=== PATIENT | female | born 1955 | race Caucasian/White ===

== ENCOUNTER 2017-10-09 18:14 | Inpatient (IN) | payer OTHER ==
[~2017-10-09] VITALS: Ht 154.9 cm; Wt 81.2 kg
--- NOTE | ~2017-10-09 | EKG ---
[place] [address] ELECTROCARDIOGRAM REPORT Name: VICTORINO ANDERSON Room: [address] ADM IN ..#: [id number] Admission: 10/09/17 Attend Phys: Marvel Hill MD Discharge: Date of : 51 Report #: [id number] THIS REPORT FOR: //name// [facility] ED Test Date: 2017-10-09 Test Time: 18:20:11 Pat Name: VICTORINO KIPAndrews EMELY Department: Room: [address] Gender: F Principal Cloud Architect: Frank SAUCEDO : 1955 Requested By: Rehana Hester Order Number: [id number] Reading MD: Measurements Intervals [place] Rate: 59 P: 24 MO: 169 QRS: -9 QRSD: 138 T: 75 QT: 449 QTc: 445 Interpretive Statements Sinus rhythm Left bundle branch block Baseline wander in lead(s) V1,V2,V4,V5,V6 No previous ECG available for comparison [email or web address] By: 1820 1820 Epiphany Epiphany, /EPI
[2017-10-09 18:19] VITALS: BP 146/83
[2017-10-09] MEDS ORDERED: METFORMIN HCL500 MG PO (18:25)
[2017-10-09] MEDS ORDERED: GLUCOTROL5 MG PO (18:26)
[2017-10-09 18:45] LABS: ABSOLUTE EOSINOPHILS 0.2 thou/uL (0.0-0.7); ABSOLUTE LYMPHOCYTES 2.3 thou/uL (0.8-5.3); ABSOLUTE MONOCYTES 0.3 thou/uL (0.0-1.2); ABSOLUTE NEUTROPHILS 3.2 thou/uL (1.6-8.1); BASOPHILS 0.7 %; EOSINOPHILS 3.5 %; HEMATOCRIT 42.9 % (37.0-47.0); HEMOGLOBIN 14.6 gm/dL (12.0-15.0); LYMPHOCYTES 37.5 %; MCH 30.4 pg (26.0-34.0); MCHC 33.9 g/dL (28.0-37.0); MCV 89.6 fL (80.0-100.0); MONOCYTES 4.5 %; MPV 8.3 fl. (7.2-11.1); NUCLEATED RBCS 0 /100WBC; PLATELET COUNT* 190 thou/uL (150-400); POLYS 53.8 %; RBC 4.79 mil/uL (4.20-5.00); RDW-CV 13.7 % (10.5-14.5)
[2017-10-09 18:58] LABS: ANION GAP 8 mmol/L (7-16); BUN 14 mg/dL (7-18); CALCIUM 9.2 mg/dL (8.5-10.1); CHLORIDE 100 mmol/L (98-107); CO2 26 mmol/L (21-32); CREATININE 0.6 mg/dL (0.6-1.3); GLUCOSE 335 mg/dL (70-99); POTASSIUM 3.8 mmol/L (3.5-5.1); SODIUM 134 mmol/L (136-145)
[2017-10-09 19:05] LABS: ALBUMIN 3.3 g/dL (3.4-5.0); ALKALINE PHOSPHATASE 94 U/L (46-116); SGOT 31 U/L (15-37); SGPT 65 U/L (30-65); TOTAL BILIRUBIN 0.9 mg/dL (<0.1-1.0); TOTAL PROTEIN 6.7 g/dL (6.4-8.2); TROPONIN-I LEVEL <0.06 ng/mL (<0.06)
[2017-10-09 19:24] LABS: BE 0.1 mmol/L (-2 to +3); HCO3 24.4 mmol/L (22.0-26.0); PCO2 38.5 mmHg (35.0-45.0)
[2017-10-09 19:28] LABS: PO2 58.4 mmHg (75.0-100.0)
[2017-10-09 20:48] LABS: URINE BILIRUBIN NEGATIVE (Negative); URINE BLOOD NEGATIVE (Negative); URINE CLARITY CLEAR; URINE COLOR YELLOW; URINE GLUCOSE-RANDOM 3+ (Negative); URINE KETONES NEGATIVE (Negative); URINE LEUKOCYTES-REFLEX TRACE (Negative); URINE NITRITE-REFLEX NEGATIVE (Negative); URINE PROTEIN NEGATIVE (Negative); URINE SPECIFIC GRAVITY <= 1.005 (1.005-1.030); URINE UROBILINOGEN 0.2 E.U./dl (0.2-1.0)
[2017-10-09 21:22] LABS: CASTS None Seen /LPF (None Seen); SQUAMOUS 4-10 Moderate /LPF (0-3)
[2017-10-09 21:23] LABS: AMP/METHAMP Negative (Negative); BACTERIA-REFLEX 1-9 Few /HPF (None Seen); BARBITURATES Negative (Negative); BENZODIAZEPINES Negative (Negative); COCAINE Negative (Negative); CRYSTALS None Seen /LPF (None Seen); METHADONE Negative (Negative); OPIATES Negative (Negative); PCP Negative (Negative); THC Negative (Negative); URINE RBC None Seen /HPF (0-2); URINE WBC-REFLEX 0-5 Rare /HPF (0-5)
[2017-10-09 23:12] VITALS: BP 138/70
[2017-10-09 23:54] VITALS: BP 144/72
[2017-10-10 00:14] VITALS: BP 143/70
--- NOTE | 2017-10-10 00:47 | NUR ---
RECIEVED REPORT FROM PRESS ASSISTANT AND FEEDER AND ASSUMED CARE OF PATIENT UPON ADMISSION TO ROOM 208 AT 2345. ADMISSION HISTORY AND ASSESSMENT COMPLETED CHARTED, VSS. PATIENT ON 2L O2 NC WITH SATS >92%. PATIENT DENIES CHEST PAIN AND SHORTNESS OF AIR AT THIS TIME. PATIENT DID, HOWEVER, HAVE C/O HEADACHE. ORDERS RECIEVED FOR ACETAMINOPHEN, PENDING PHARMACY VERIFICATION. PATIENT INFORMED OF FALL PRECAUTIONS DUE TO DIZZINESS, PATIENT VERBALIZES UNDERSTANDING AND COMPLIANCE. CALL LIGHT WITHIN REACH. GOAL IS TO REMAIN FREE OF CHEST PAIN AND IMPROVEMENT OF BLOOD SUGARS. LATEST ACCU CHECK WAS 165, DOWN FROM 335 FROM ER CHECK.
[2017-10-10 04:23] VITALS: BP 121/64
--- NOTE | 2017-10-10 06:55 | NUR ---
PATIENT PARTIALLY PROGESSING TOWARDS GOALS: PATIENT DENIES CHEST PAIN THROUGHOUT SHIFT. PATIENT REMAINS ON 2L O2 NC WITH SATS >92%. PATIENT HAS RESTED WELL THIS SHIFT. CALL LIGHT WITHIN REACH
[2017-10-10 07:30] VITALS: BP 136/63
[2017-10-10 13:09] VITALS: BP 136/63
[2017-10-10 13:17] VITALS: BP 136/70
--- NOTE | 2017-10-10 14:22 | NUR ---
RECEIVED REPORT AND ASSUMED CARE AT 0700. VSS. CARDIAC MONITORING IN PLACE. PT DENIES ANY COMPLAINTS PAIN. PT ON 2L NC, DOES NOT WEAR O2 AT HOME. REMOVED NC, PT SAT 97% ON RA. ASSESSMENT COMPLETED CHARTED. HOURLY ROUNDING COMPLETED AND ALL NEEDS MET. PT CLEARED BY CARDIOLOGY, ORDERED OUTPATIENT ECHO, DISCHARGE ORDERS PLACED ON CHART. PAPERWORK COMPLETED BY NURSING. DISCUSSED DISCHARGE INSTRUCTIONS, PT VERBALIZED UNDERSTANDING. ALL QUESTIONS AND COMCERNS ANSWERED AT THIS TIME. PT BELONGINGS GATHERED AND PT DRESSED. IV AND CARDIAC MONITORING DISCONTINUED. PT TAKEN BY WHEELCHAIR TO DAUGHTERS PERSONAL CAR BY NURSING STAFF.
--- NOTE | 2017-10-11 08:45 | CON ---
[address] [address] CONSULTATION Name: VICTORINO ANDERSON Room: [address] IN .#: [id number] Admission: 10/09/17 Attend Phys: Marvel Hill MD Discharge: 10/10/17 Date of : 51 Report #: [id number] THIS REPORT FOR: //name// CC: Marvel Hill [facility] physician/PCP DATE OF SERVICE: 10/10/2017 ADDENDUM New left bundle branch block. Recommend outpatient echocardiogram to further evaluate. <ELECTRONICALLY SIGNED> By: Kalyan Cordoba MD, FACC 10/11/17 0845 1050 [id number] arizonacecilia Cordoba MD, FACC /nt
--- NOTE | 2017-10-11 08:45 | CON ---
[address] [address] CONSULTATION Name: VICTORINO ANDERSON Room: [address]#: [id number] Admission: 10/09/17 Attend Phys: Marvel Hill MD Discharge: 10/10/17 Date of : 51 Report #: [id number] THIS REPORT FOR: //name// CC: Marvel Hill [facility] physician/PCP CARDIOLOGY CONSULTATION INDICATION: Chest pain. HISTORY OF PRESENT ILLNESS: The patient is a 62-year-old white female with diabetes, who was admitted to the hospital with chest pain. She describes it as midsternal without radiation. She took 8 Rolaids with partial relief. She has had gastroesophageal reflux in the past. She has no history of coronary artery disease. Stress testing in May 2016 was unremarkable. Her pain has resolved. Cardiac enzymes were unremarkable. EKG shows sinus rhythm without any significant ST or T-wave abnormalities. PAST MEDICAL HISTORY: 1. Type 2 diabetes mellitus. 2. History of stroke in November 2016. 3. Right ACL repair in 2014. 4. Left rotator cuff repair in 2009. FAMILY HISTORY: The patient's father has had coronary artery bypass. SOCIAL HISTORY: The patient is retired. She does not smoke. She does not drink alcohol. REVIEW OF SYSTEMS: Positive for cough, pneumonia in May 2017, chest discomfort as outlined above, dyspnea, type 2 diabetes mellitus and she wears glasses without acute visual change. CURRENT MEDICATIONS: Tradjenta 5 mg daily, metformin 1000 mg b.i.d. ALLERGIES: None documented. PHYSICAL EXAMINATION: VITAL SIGNS: Stable. Blood pressure 136/63, pulse 55 and regular. GENERAL: This is a pleasant lady in no distress. Mood and affect appropriate. HEENT: The patient is wearing glasses. Extraocular muscles intact. Mucous membranes are moist. NECK: Shows no jugular venous distention. There are no carotid bruits. CHEST: Reveals clear lung beck without wheezes or rales. CARDIAC: Reveals regular rhythm with normal S1 and S2. I do not appreciate gallop or murmur. ABDOMEN: Reveals normal bowel sounds. The abdomen is soft, [place] [id number] CONSULTATION Name: KIPAndrews VICTORINO HAN Room: [address]#: [id number] Admission: 10/09/17 Attend Phys: Marvel Hill MD Discharge: 10/10/17 Date of : 51 Report #: [id number] EXTREMITIES: Shows no clubbing, cyanosis or edema. IMPRESSION AND RECOMMENDATIONS: 1. Chest pain, atypical. The patient has ruled out for myocardial infarction, likely gastroesophageal reflux disease. I recommend omeprazole as needed. She had recent stress testing that was unremarkable. 2. Diabetes per primary physician. At this point in time, the patient appears stable from cardiac standpoint for discharge. ADDENDUM New left bundle branch block. Recommend outpatient echocardiogram to further evaluate. <ELECTRONICALLY SIGNED> By: Kalyan Cordoba MD, FACC 10/11/17 0845 1048 [id number] Cordoba MD, FACC /nt
--- NOTE | 2017-10-11 15:48 | EKG ---
[place] [address] ELECTROCARDIOGRAM REPORT Name: VICTORINO ANDERSON Room: [address] DIS IN .R.#: [id number] Admission: 10/09/17 Attend Phys: Marvel Hill MD Discharge: 10/10/17 Date of : 51 Report #: [id number] THIS REPORT FOR: //name// [facility] ED Test Date: 2017-10-09 Test Time: 18:20:11 Pat Name: VICTORINO BRYANT EMELY Department: Room: [address] Gender: F Gang Drill Operator: Frank SAUCEDO : 1955 Requested By: Kaia Javier Order Number: [id number] Shaka MD: Kalyan Cordoba Measurements Intervals [place] Rate: 59 P: 24 [place]: 169 QRS: -9 QRSD: 138 T: 75 QT: 449 QTc: 445 Interpretive Statements Sinus rhythm Left bundle branch block Baseline wander in lead(s) V1,V2,V4,V5,V6 Compared to ECG 03/20/2008 11:49:13 Left bundle-branch block now present Sinus bradycardia no longer present Electronically Signed On 10-11-2017 15:48:24 CDT by Kalyan Cordoba [email or web address] <ELECTRONICALLY SIGNED> By: Kalyan Cordoba MD, [facility] 10/11/17 [phone] Kalyan Cordoba MD, [facility] /EPI
== END 2017-10-10 15:46 | disposition home or self-care (01) | DRG 392 ==
LOC: M.ERS 18:14 → M.TBA-ER 21:05 → M.2W 21:05
PROVIDERS: Nurse Practitioner Family; ADMIT Internal Medicine
DX: K21.9 Gastro-esophageal reflux disease without esophagitis (principal); E11.65 Type 2 diabetes mellitus with hyperglycemia; I44.7 Left bundle-branch block, unspecified; M19.90 Unspecified osteoarthritis, unspecified site; Z86.73 Personal history of transient ischemic attack (TIA), and cerebral infarction without residual deficits; Z79.84 Long term (current) use of oral hypoglycemic drugs; Z79.899 Other long term (current) drug therapy; Z79.4 Long term (current) use of insulin; Z82.49 Family history of ischemic heart disease and other diseases of the circulatory system; Z90.49 Acquired absence of other specified parts of digestive tract

== ENCOUNTER 2018-02-25 16:08 | Inpatient (IN) | payer OTHER ==
[~2018-02-25] VITALS: Ht 154.9 cm; Wt 80.7 kg
[~2018-02-25 16:08] MED LIST: GLUCOTROL5 MG PO; METFORMIN HCL500 MG PO
[2018-02-25 16:16] VITALS: BP 127/67
[2018-02-25 16:50] LABS: ABSOLUTE EOSINOPHILS 0.3 thou/uL (0.0-0.7); ABSOLUTE LYMPHOCYTES 2.3 thou/uL (0.8-5.3); ABSOLUTE MONOCYTES 0.3 thou/uL (0.0-1.2); ABSOLUTE NEUTROPHILS 3.2 thou/uL (1.6-8.1); BASOPHILS 0.6 %; EOSINOPHILS 5.4 %; HEMATOCRIT 40.4 % (37.0-47.0); HEMOGLOBIN 13.7 gm/dL (12.0-15.0); LYMPHOCYTES 36.6 %; MCH 30.7 pg (26.0-34.0); MCV 90.2 fL (80.0-100.0); MONOCYTES 5.5 %; MPV 7.8 fl. (7.2-11.1); NUCLEATED RBCS 0 /100WBC; PLATELET COUNT* 229 thou/uL (150-400); POLYS 51.9 %; RBC 4.48 mil/uL (4.20-5.00); RDW-CV 13.6 % (10.5-14.5); WBC 6.2 thou/uL (4.0-11.0)
[2018-02-25 16:56] LABS: ANION GAP 10 mmol/L (7-16); BUN 12 mg/dL (7-18); CHLORIDE 103 mmol/L (98-107); CO2 27 mmol/L (21-32); CREATININE 0.8 mg/dL (0.6-1.3); GLUCOSE 185 mg/dL (70-99); POTASSIUM 3.5 mmol/L (3.5-5.1); SODIUM 140 mmol/L (136-145)
[2018-02-25 16:57] LABS: PROTIME 10.3 Seconds (9.20-11.50)
[2018-02-25 17:03] LABS: ALBUMIN 3.4 g/dL (3.4-5.0); ALKALINE PHOSPHATASE 78 U/L (46-116); SGOT 25 U/L (15-37); SGPT 60 U/L (30-65); TOTAL BILIRUBIN 0.7 mg/dL (<0.1-1.0); TOTAL PROTEIN 6.6 g/dL (6.4-8.2); TROPONIN-I LEVEL <0.06 ng/mL (<0.06)
[2018-02-25 20:00] VITALS: BP 128/64
[2018-02-26 04:11] VITALS: BP 122/71
[2018-02-26 05:17] LABS: ABSOLUTE EOSINOPHILS 0.4 thou/uL (0.0-0.7); ABSOLUTE LYMPHOCYTES 2.8 thou/uL (0.8-5.3); ABSOLUTE MONOCYTES 0.3 thou/uL (0.0-1.2); ABSOLUTE NEUTROPHILS 2.3 thou/uL (1.6-8.1); BASOPHILS 0.7 %; EOSINOPHILS 6.7 %; HEMOGLOBIN 12.9 gm/dL (12.0-15.0); MCH 30.7 pg (26.0-34.0); MCHC 33.9 g/dL (28.0-37.0); MCV 90.7 fL (80.0-100.0); MONOCYTES 5.7 %; MPV 8.3 fl. (7.2-11.1); NUCLEATED RBCS 0 /100WBC; PLATELET COUNT* 198 thou/uL (150-400); POLYS 38.9 %; RBC 4.19 mil/uL (4.20-5.00); RDW-CV 13.5 % (10.5-14.5); WBC 5.8 thou/uL (4.0-11.0)
[2018-02-26 05:26] LABS: CALCIUM 8.6 mg/dL (8.5-10.1); CREATININE 0.6 mg/dL (0.6-1.3); POTASSIUM 3.6 mmol/L (3.5-5.1)
[2018-02-26 06:03] LABS: CHOLESTEROL 155 mg/dL (<200); HDL CHOLESTEROL 49 mg/dL (>40); LDL CHOLESTEROL 73 mg/dL (<100); TC:HDL 3.2 Ratio (Not establshd); TRIGLYCERIDE 165 mg/dL (<150); VLDL 33 mg/dL (<40)
[2018-02-26 06:12] LABS: SERUM ASSESSMENT Clear
[2018-02-26 07:00] VITALS: BP 135/63
[2018-02-26 12:24] VITALS: BP 138/56
--- NOTE | 2018-02-26 12:49 | 2DMMODE ---
[place] [address] 2 D/M-MODE ECHOCARDIOGRAM Name: VICTORINO ANDERSON Room: [address] IN [facility]#: [id number] Admission: 02/25/18 Attend Phys: Marvel Hill, Discharge: Date of : 51 Date of Service: 02/26/18 1249 Report #: [id number] THIS REPORT FOR: //name// APPROVED REPORT Study performed: 02/26/2018 11:03:28 EXAM: Comprehensive 2D, Doppler, and color-flow Echocardiogram Patient Location: In-Patient Room #: 222 Status: routine BSA: 1.78 HR: 50 bpm BP: 135/63 mmHg Rhythm: NSR Other Information Study Quality: Good Indications CVA/TIA Echo Enhancing Agent Indication: Rule out Shunt Agent(s) / Amount(s) Used: Agitated Saline 10 cc 2D Dimensions IVSd: 10.39 (7-11mm) LVOT Diam: 19.22 (18-24mm) LVDd: 45.71 mm PWd: 7.55 (7-11mm) Ascending Ao: 29.71 (22-36mm) LVDs: 30.14 (25-40mm) Aortic Root: 26.82 mm Volumes Left Atrial Volume (Systole) LA ESV Index: 24.90 mL/m2 Aortic Valve AoV Peak Francisco.: 1.40 m/s AO Peak Gr.: 7.83 mmHg LVOT Max P.52 mmHg AO Mean Gr.: 3.80 mmHg LVOT Mean P.87 mmHg LVOT Max V: 0.94 m/s AO V2 VTI: 29.86 cm LVOT Mean V: 0.64 m/s ANU (VTI): 2.11 cm2 LVOT V1 VTI: 21.67 [place] [address] 2 D/M-MODE ECHOCARDIOGRAM Name: VICTORINO ANDERSON Room: [address] IN [facility]#: [id number] Admission: 02/25/18 Attend Phys: Marvel Hill, Discharge: Date of : 51 Date of Service: 02/26/18 1249 Report #: [id number] Mitral Valve E/A Ratio: 1.08 MV Decel. Time: 178.19 ms MV E Max Francisco.: 0.85 m/s MV PHT: 51.67 ms MVA (PHT): 4.26 cm2 TDI E/Lateral E': 9.44 E/Medial E': 12.14 Medial E' Francisco.: 0.07 m/s Lateral E' Francisco.: 0.09 m/s Pulmonary Valve PV Peak Francisco.: 0.99 m/s PV Peak Gr.: 3.92 mmHg Tricuspid Valve RAP Estimate: 5.00 mmHg TR Peak Gr.: 22.95 mmHg RVSP: 28.00 mmHg PA Pressure: 28.00 mmHg Left Ventricle The left ventricle is normal size. There is normal LV segmental wall motion. There is normal left ventricular wall thickness. Left ventricular systolic function is normal. The left ventricular ejection fraction is within the normal range. LVEF is 55-60%. The left ventricular diastolic function is normal. Right Ventricle The right ventricle is normal size. The right ventricular systolic function is normal. Atria The left atrium size is normal. Interatrial septum is intact without evidence of ASD or PFO. The right atrium size is normal. Aortic Valve The Aortic valve is sclerotic. Trace aortic regurgitation. There is no aortic valvular stenosis. Mitral Valve The mitral valve is normal in structure. There is no mitral valve regurgitation noted. No evidence of mitral valve stenosis. Tricuspid Valve The tricuspid valve is normal in structure. Trace tricuspid regurgitation. [place] [address] 2 D/M-MODE ECHOCARDIOGRAM Name: VICTORINO ANDERSON Room: [address] IN .R.#: [id number] Admission: 02/25/18 Attend Phys: Marvel Hill, Discharge: Date of : 51 Date of Service: 02/26/18 1249 Report #: [id number] Pulmonic Valve The pulmonary valve is normal in structure. There is no pulmonic valvular regurgitation. Great Vessels The aortic root is normal in size. IVC is normal in size and collapses >50% with inspiration. Pericardium There is no pericardial effusion. <Conclusion> LVEF is 55-60%. The Aortic valve is sclerotic. Interatrial septum is intact without evidence of ASD or PFO. <ELECTRONICALLY SIGNED> By: Scooter Greco MD, FACC 02/26/18 1249 1249 1249 Scooter Greco MD, FACC /INF
--- NOTE | 2018-02-26 14:35 | EKG ---
[place] [address] ELECTROCARDIOGRAM REPORT Name: VICTORINO ANDERSON Room: [address] ADM IN [facility].#: [id number] Admission: 02/25/18 Attend Phys: Marvel Hill MD Discharge: Date of : 51 Report #: [id number] THIS REPORT FOR: //name// [facility] ED Test Date: 2018-02-25 Test Time: 16:40:01 Pat Name: VICTORINO HAN Department: Room: [facility] Gender: F Feeder Catcher: Frank SAUCEDO : 1955 Requested By: Ismael Ferrell Order Number: [id number] MD: Scooter Greco Measurements Intervals [place] Rate: 61 P: 44 OR: 161 QRS: 3 QRSD: 140 T: 62 QT: 457 QTc: 461 Interpretive Statements Sinus rhythm Left bundle branch block Compared to ECG 10/09/2017 18:20:11 No significant changes Electronically Signed On 02-26-2018 14:35:39 CDT by Scooter Greco [email or web address] <ELECTRONICALLY SIGNED> By: Scooter Greco MD, FACC 02/26/18 1435 1640 1640 Scooter Greco MD, FAC /EPI
[2018-02-26 16:31] VITALS: BP 131/64
[2018-02-26 16:46] VITALS: BP 131/64
[2018-02-26 18:10] VITALS: BP 131/64
--- NOTE | 2018-02-26 18:50 | NUR ---
VSS, ASSUMED CARE IN THE AM, ASSESSMENT PERFORMED AND CHARTED, FALL PRECAUTIONS IN PLACE AND CALL LIGHT IN [facility], PT IS A&O4 AND ON RA, SHE IS TRACING SR/ST ON THE MONITOR, DENIES ANY PAIN HER SEAWAL IS 4-5, IS ON RA, HER GAOL IS SAFETY, PT SHOULD HAVE EGD TOMMORROW, HOURLY ROUNDS COMPLETED, WILL FOLLOW WITH PLAN OF CARE.
[2018-02-26 23:12] LABS: GLYCOHEMOGLOBIN (HGB A1C) 7.2 % (4.8-5.6)
--- NOTE | 2018-03-03 11:59 | CON ---
[address] [address] CONSULTATION Name: VICTORINO ANDERSON Room: [address]#: [id number] Admission: 02/25/18 Attend Phys: Marvel Hill MD Discharge: 02/26/18 Date of : 51 Report #: [id number] THIS REPORT FOR: //name// CC: Marvel Hill [facility] physician/PCP Neurology Consultation HISTORY OF PRESENT ILLNESS: The patient is a 62-year-old female who presented to the emergency room because she thought she was having another stroke. Two nights prior to admission, she had bumped her head and began experiencing right-sided numbness. She fell because of the numbness. When I saw her, she had paresthesias in the right hand, paresthesias in the right foot, weakness in the right foot, but she also told me that she had paresthesias in both feet. She does have a history of diabetes. PAST MEDICAL HISTORY: Stroke, diabetes. PAST SURGICAL HISTORY: ACL surgery, cholecystectomy, right rotator cuff surgery. MEDICATIONS: Metformin 1000 mg b.i.d. ALLERGIES: None. PHYSICAL EXAMINATION: VITAL SIGNS: Temperature is 36.3, pulse rate 54, respiratory rate 18, blood pressure 131/64, bedside pulse oximetry 98% on room air. NEUROLOGIC: Cranial nerves 2-12 are grossly intact. Motor exams demonstrate symmetrical strength in all 4 extremities with tone and bulk normal. Reflexes are symmetrical throughout. Coordination reveals intact [id number]. Casual gait was not tested. LABORATORY DATA: Hematology: White blood cell count 6.2, hemoglobin 13.7, hematocrit 40.4, MCV 90.2, platelet count 229,000. Coagulation: INR 1. Chemistry: Sodium 141, potassium 3.6, chloride 106, carbon dioxide 29, BUN 11, creatinine 0.6, GFR 101, glucose 191. Hemoglobin A1c 7.2, calcium 8.6, total bilirubin 0.7, AST 25, ALT 16, alkaline phosphatase 78, creatinine kinase 35, triglycerides 165, cholesterol 155, LDL 73, HDL 49, cholesterol ratio 3.2, amylase 31, lipase 222. Vitamin B12 212. IMPRESSION: This patient has had an MRI of the head and MR angiography with no significant findings. These symptoms that she presents with are not related to stroke. However, she should have a B12 level checked to rule out low B12. As it turns out, her level is 212 and I will call her and have her set up B12 injections. No family physician is listed on her facesheet. So, something [place] [address] CONSULTATION Name: VICTORINO ANDERSON Room: [address] IN M.R.#: [id number] Admission: 02/25/18 Attend Phys: Marvel Hill MD Discharge: 02/26/18 Date of : 51 Report #: [id number] I thank you for your kind referral of the patient. <ELECTRONICALLY SIGNED> By: Nica Rueda DO 03/03/18 1159 1139 [id number] Rueda DO /nt
== END 2018-02-26 18:58 | disposition home or self-care (01) | DRG 74 ==
LOC: M.ERS 16:08 → M.2W 18:09 → M.TBA-ER 18:09 → M.2W 19:21
PROVIDERS: Emergency Medicine Emergency Medical Services; ADMIT Internal Medicine
DX: E11.42 Type 2 diabetes mellitus with diabetic polyneuropathy (principal); S70.12XA Contusion of left thigh, initial encounter; R20.2 Paresthesia of skin; W18.30XA Fall on same level, unspecified, initial encounter; Y93.89 Activity, other specified; Y92.89 Other specified places as the place of occurrence of the external cause; Y99.8 Other external cause status; Z86.73 Personal history of transient ischemic attack (TIA), and cerebral infarction without residual deficits; Z90.49 Acquired absence of other specified parts of digestive tract; Z79.84 Long term (current) use of oral hypoglycemic drugs; Z28.21 Immunization not carried out because of patient refusal